=== PATIENT | male | born 1955 ===

== ENCOUNTER 2019-03-23 06:45 | Day surgery (SDC) | payer BC ==
[~2019-03-23] VITALS: Ht 180.3 cm; Wt 86.4 kg
--- NOTE | 2019-03-23 07:15 | NUR ---
PT ASMITTED TO [facility]. AGREES WITH PLANNED PROCEDURE. STATES HE TOLERATED BOWEL PREP AND STATES LAST BM CLEAR.
--- NOTE | 2019-03-23 08:04 | NUR ---
03/23/19 0803 Carol Goodrich History, Chart, Medications and Allergies reviewed before start of procedure. Patient confirms NPO status and agrees with scheduled surgery. PATIENT DETERMINED TO BE ASA APPROPRIATE FOR PROPOFOL SEDATION PRIOR TO START OF PROCEDURE BY DR. MULLIGAN. 3-LEAD EKG REVIEWED WITH PHYSICIAN PRIOR TO START OF PROCEDURE. MONITOR INTACT WITH CONTINUOUS PULSE OXIMETRY AND INTERMITTENT BP.
== END 2019-03-23 09:13 | disposition home or self-care (01) ==
LOC: ORSCMMR 06:45 → ORD 08:00 → ORSCMMR 08:00
PROVIDERS: Internal Medicine Gastroenterology
PROC: 0DBN8ZX Excision of Sigmoid Colon, Via Natural or Artificial Opening Endoscopic, Diagnostic (ICD-10-PCS; principal; 2019-03-23 08:00)
PROC: 0DBH8ZX Excision of Cecum, Via Natural or Artificial Opening Endoscopic, Diagnostic (ICD-10-PCS; principal; 2019-03-23 08:00)
PROC: 0DBL8ZX Excision of Transverse Colon, Via Natural or Artificial Opening Endoscopic, Diagnostic (ICD-10-PCS; principal; 2019-03-23 08:00)
DX: Z12.11 Encounter for screening for malignant neoplasm of colon (principal); Z80.0 Family history of malignant neoplasm of digestive organs; D12.0 Benign neoplasm of cecum; D12.3 Benign neoplasm of transverse colon; K63.5 Polyp of colon; K64.4 Residual hemorrhoidal skin tags; K64.8 Other hemorrhoids; K62.4 Stenosis of anus and rectum; J44.9 Chronic obstructive pulmonary disease, unspecified; F17.210 Nicotine dependence, cigarettes, uncomplicated
CPT/HCPCS: 88305; J2704; J7120

== ENCOUNTER → 2019-10-23 | Outpatient (CLI) | payer BC | LOC: LAB SHORT 11:30 → LAB 11:30 | DX: H60.502 Unspecified acute noninfective otitis externa, left ear (principal) | CPT/HCPCS: 87070; 87075; 87205 ==